=== PATIENT | male | born 1955 | race Caucasian/White ===

== ENCOUNTER 2019-12-26 06:03 | Day surgery (SDC) | payer MEDICARE, MEDICAID ==
[~2019-12-26] VITALS: Ht 167.6 cm; Wt 113.4 kg
[~2019-12-26 06:03] MED LIST: ASPI-1497 PO; ATOR20TA65 PO; HYDR-3933 PO; ONDA4TAB5 PO; SERT-112 PO; TAMS0.4C31 PO
[2019-12-26] MEDS ORDERED: LACTATED RINGERS 1,000 ML IV SCH (06:30)
[2019-12-26] MEDS ORDERED: FENTANYL CITRATE/PF 50MCG/ML 2ML VIAL ONE (07:34)
[2019-12-26] MEDS ORDERED: LIDOCAINE HCL/PF 1% 10 MG/ML 5ML VIAL ONE (07:35)
[2019-12-26] MEDS ORDERED: MIDAZOLAM HCL 2 MG/2 ML VIAL ONE (07:35)
[2019-12-26] MEDS ORDERED: PROPOFOL 200MG/20ML VIAL IV ONE (07:35)
[2019-12-26] MEDS ORDERED: ROCURONIUM BROMIDE 10MG/ML VIAL 5ML IV ONE (07:36)
[2019-12-26] MEDS ORDERED: SUCCINYLCHOLINE CHLORIDE 200MG/10ML IV ONE (07:36)
[2019-12-26] MEDS ORDERED: EPHEDRINE SULFATE 50MG/ML VIAL ONE (07:37)
[2019-12-26] MEDS ORDERED: GLYCOPYRROLATE 0.2 MG/ML 2ML VIAL ONE (07:48)
[2019-12-26] MEDS ORDERED: CEFAZOLIN SODIUM 1000MG/VIAL ONE (08:40)
[2019-12-26] MEDS ORDERED: HYDROMORPHONE HCL/PF 2MG/ML CPJ IV PRN (09:00)
== END 2019-12-26 10:40 | disposition home or self-care (01) ==
LOC: OR 06:03
PROVIDERS: ATTEND Urology
DX: N20.0 Calculus of kidney (principal); E03.9 Hypothyroidism, unspecified; E78.00 Pure hypercholesterolemia, unspecified; F32.9 Major depressive disorder, single episode, unspecified; G47.33 Obstructive sleep apnea (adult) (pediatric); E66.9 Obesity, unspecified; Z79.1 Long term (current) use of non-steroidal anti-inflammatories (NSAID); Z79.899 Other long term (current) drug therapy; Z98.890 Other specified postprocedural states; Z79.82 Long term (current) use of aspirin
CPT/HCPCS: 50590; J0330; J0690; J2250; J2704; J3010; J3490